=== PATIENT | female | born 1945 | race Caucasian/White ===

== ENCOUNTER 2023-09-11 07:31 | Day surgery (SDC) | payer MEDICARE, OTHER ==
[~2023-09-11 07:31] MED LIST: Sodium Chloride 0.9% 10 ML Syringe FLUSH PRN
[2023-09-11] MEDS ORDERED: Propofol 200 MG/20 ML SDV IV ONE (07:32)
[2023-09-11] MEDS ORDERED: Midazolam 1 MG/ML 2 ML SDV IV ONE (07:32)
[2023-09-11] MEDS: Lactated Ringers 1,000 ML IV SCH (08:18)
[2023-09-11] MEDS: Simethicone Drops 40 MG/0.6 ML 30 ML Bottle ONE (09:08)
[2023-09-11 10:13] VITALS: BP 119/67; PULSE 74
== END 2023-09-11 10:06 | disposition home or self-care (01) ==
LOC: FB.SDS 07:31
PROVIDERS: ATTEND Surgery
DX: K21.00 Gastro-esophageal reflux disease with esophagitis, without bleeding (principal); K44.9 Diaphragmatic hernia without obstruction or gangrene; R13.10 Dysphagia, unspecified
CPT/HCPCS: 43239; 88305; 88312; A9270; J2250; J2704; J7120; 00731; 99100

== ENCOUNTER 2024-02-26 08:30 | Day surgery (SDC) | payer MEDICARE, OTHER ==
[2024-02-26] MEDS ORDERED: Lidocaine 2% 100 MG/5 ML Syringe IVPUSH ONE (08:31)
[2024-02-26] MEDS ORDERED: Propofol 200 MG/20 ML SDV IV ONE (08:31)
[2024-02-26] MEDS: Lactated Ringers 1,000 ML IV SCH (09:42)
[2024-02-26] MEDS: Simethicone Drops 40 MG/0.6 ML 30 ML Bottle ONE (10:06)
[2024-02-26 12:55] VITALS: BP 92/70; PULSE 74
== END 2024-02-26 11:50 | disposition home or self-care (01) ==
LOC: FB.SDS 08:30
PROVIDERS: ATTEND Surgery
DX: Z12.11 Encounter for screening for malignant neoplasm of colon (principal); R19.5 Other fecal abnormalities; D12.6 Benign neoplasm of colon, unspecified; K57.30 Diverticulosis of large intestine without perforation or abscess without bleeding; K21.9 Gastro-esophageal reflux disease without esophagitis; E78.00 Pure hypercholesterolemia, unspecified; Z79.899 Other long term (current) drug therapy
CPT/HCPCS: 00811; 45380; 88305; 99100; A9270; J2704; J7120